=== PATIENT | male | born 1975 | race African-American/Black ===

== ENCOUNTER 2018-12-27 10:39 | Emergency (ER) | payer SELFPAY ==
[~2018-12-27] VITALS: Ht 172.7 cm; Wt 73.5 kg
[2018-12-27 10:47] VITALS: BP 140/81
== END 2018-12-27 11:59 | disposition home or self-care (01) ==
LOC: ER 10:39
DX: B35.3 Tinea pedis (principal)
CPT/HCPCS: 99282; A4606

== ENCOUNTER 2019-06-20 19:14 | Emergency (ER) | payer MEDICARE, OTHER ==
[~2019-06-20] VITALS: Ht 172.7 cm; Wt 74.8 kg
--- NOTE | 2019-06-20 20:43 | NUR ---
[place]ON FROM STREET. TO ER BED 9, AAOX4. NO RESP DISTRESS NOTD, EVEN AND UNLABORED BREATHING. AMBULATORY. C/O BACK PAIN, NASAL CONGESTION AND NAUSEA. PT REPORTS THAT HIS BACK PAIN HAS BEEN GOING ON FOR YEARS, [address]. NASAL CONGESTION FOR 1 MONTH. PT REPORTS THAT HE HAS BEEN ON THE STREETS AND STAYING IN A FRIEND'S VAN. PT VERBALIZED THAT HE WOULD LIKE TO SPEAK TO A [employer] FOR HOUSING HELP. PT MADE AWARE THAT [employer] WILL BE AVAILABLE IN AM. AWAITING MD FOR SALLY.
[2019-06-20] MEDS ORDERED: diphenhydrAMINE HCL 25 MG CAPSULE ONE (21:28)
[2019-06-20] MEDS ORDERED: IBUPROFEN 600 MG TABLET PO ONE ×2 (21:28→21:30)
[2019-06-20] MEDS ORDERED: DIPHENHYDRAMINE HCL 12.5 MG/5 ML UDC PO ONE (21:30)
--- NOTE | 2019-06-21 02:05 | NUR ---
Patient discharged to home in stable condition. Written and verbal after care instructions given. Patient verbalizes understanding of instruction. Pt ambulatory with a steady gait. Pt signed homeless waiver. Pt DC to waiting room to see director social welfare in AM
[2019-06-21 02:19] VITALS: BP 119/75
== END 2019-06-21 02:22 | disposition home or self-care (01) ==
LOC: ER 19:14
DX: M54.5 Low back pain (principal); R09.81 Nasal congestion; G89.29 Other chronic pain; Z59.0 Homelessness
CPT/HCPCS: 99283; Q0163 ×2